=== PATIENT | female | born 1965 | race Caucasian/White ===

== ENCOUNTER 2023-10-16 13:29 | Day surgery (SDC) | payer MEDICARE, OTHER ==
[2023-10-16] MEDS ORDERED: LIDOCAINE HCL 2% 100 MG/5 ML IJ ONE (13:30)
[2023-10-16] MEDS ORDERED: DIPRIVAN 200 MG/20 ML IV ONE ×2 (15:19)
[2023-10-16] MEDS ORDERED: Versed 2 MG/2 ML Injection ONE (15:20)
[2023-10-16] MEDS ORDERED: Lactated Ringers 1,000 ML IV ONE (15:31)
--- NOTE | 2023-10-16 15:59 | XRAY ---
Indication: Right C2-C4 MBB. Intraoperative fluoroscopy provided for 16 seconds. 2 digital spot images submitted for interpretation demonstrates posterior needle tips projecting over the expected right C2-C4 nerve roots. Correlate with intraoperative findings/report.
--- NOTE | 2023-10-17 07:18 | XRAY ---
16 seconds of fluoroscopy used in surgery for a right C2-C4 MBB.
== END 2023-10-16 16:05 | disposition home or self-care (01) ==
LOC: SDC-PAIN 13:29
PROVIDERS: ATTEND Psychiatry & Neurology Pain Medicine
DX: M47.812 Spondylosis without myelopathy or radiculopathy, cervical region (principal)
CPT/HCPCS: 64490; 64491; 72040; 77002; J2250; J2704

== ENCOUNTER 2024-01-08 10:10 | Day surgery (SDC) | payer MEDICARE, OTHER ==
[2024-01-08] MEDS ORDERED: Decadron 4 MG INJ IV ONE (10:11)
[2024-01-08] MEDS ORDERED: BUPIVACAINE 0.5% VIAL IJ ONE (10:11)
[2024-01-08] MEDS ORDERED: DIPRIVAN 200 MG/20 ML IV ONE (11:51)
[2024-01-08] MEDS ORDERED: Lactated Ringers 1,000 ML IV ONE (11:58)
--- NOTE | 2024-01-08 14:23 | XRAY ---
Indication: Right C2-C4 MBB. Intraoperative fluoroscopy provided for 14 seconds. 2 digital spot image submitted for interpretation demonstrates posterior needle tips projecting over expected right C2-C4 nerve roots. Correlate with intraoperative findings/report.
--- NOTE | 2024-01-08 14:37 | XRAY ---
14 seconds of fluoroscopy was used in surgery for a right C2-C4 MBB.
== END 2024-01-08 12:18 | disposition home or self-care (01) ==
LOC: SDC-PAIN 10:10
PROVIDERS: ATTEND Psychiatry & Neurology Pain Medicine
DX: M47.812 Spondylosis without myelopathy or radiculopathy, cervical region (principal); E11.9 Type 2 diabetes mellitus without complications
CPT/HCPCS: 64490; 64491; 72040; 77002; 82947; J1100; J2704

== ENCOUNTER 2024-03-11 08:55 | Day surgery (SDC) | payer MEDICARE, OTHER ==
[2024-03-11] MEDS ORDERED: Decadron 4 MG INJ IV ONE (08:56)
[2024-03-11] MEDS ORDERED: BUPIVACAINE 0.5% VIAL IJ ONE (08:56)
[2024-03-11] MEDS ORDERED: LIDOCAINE HCL 1% AMPUL 5 ML IJ ONE (08:56)
[2024-03-11] MEDS ORDERED: DIPRIVAN 200 MG/20 ML IV ONE ×2 (10:42→10:50)
--- NOTE | 2024-03-11 11:48 | XRAY ---
Indication: Right C2-C4 RFA. Intraoperative fluoroscopy provided for 24 seconds. 3 digital spot images submitted for interpretation demonstrates posterior needle tips project over expected right C2-C4 nerve roots. Correlate with intraoperative findings/report.
--- NOTE | 2024-03-11 12:10 | XRAY ---
24 seconds of fluoroscopy was used in surgery for a right C2-C4 RFA.
== END 2024-03-11 11:25 | disposition home or self-care (01) ==
LOC: SDC-PAIN 08:55
PROVIDERS: ATTEND Psychiatry & Neurology Pain Medicine
DX: M47.812 Spondylosis without myelopathy or radiculopathy, cervical region (principal); E11.9 Type 2 diabetes mellitus without complications
CPT/HCPCS: 64633; 64634; 72040; 77002; 82947; J1100; J2704

== ENCOUNTER 2024-04-22 07:51 | Day surgery (SDC) | payer MEDICARE, OTHER ==
[2024-04-22] MEDS ORDERED: Depo-Medrol 40 MG/ML IM ONE (07:52)
[2024-04-22] MEDS ORDERED: BUPIVACAINE 0.5% VIAL IJ ONE (07:52)
[2024-04-22] MEDS ORDERED: LIDOCAINE HCL 1% AMPUL 5 ML IJ ONE (07:52)
[2024-04-22] MEDS ORDERED: DIPRIVAN 200 MG/20 ML IV ONE (09:56)
--- NOTE | 2024-04-22 12:15 | XRAY ---
8 seconds of fluoroscopy was used in surgery for a right sacroiliac joint injection.
--- NOTE | 2024-04-22 12:19 | XRAY ---
Indication: Right SI joint injection. Intraoperative fluoroscopy provided for 8 seconds. Single digital spot image submitted for interpretation demonstrates posterior needle tip projecting over right SI joint. Small amount of contrast injected for needle tip placement. Correlate with intraoperative findings/report.
== END 2024-04-22 10:34 | disposition home or self-care (01) ==
LOC: SDC-PAIN 07:51
PROVIDERS: ATTEND Psychiatry & Neurology Pain Medicine
DX: M46.1 Sacroiliitis, not elsewhere classified (principal); E11.9 Type 2 diabetes mellitus without complications
CPT/HCPCS: 20553; 27096; 72170; 77002; 82947; J2704; Q9966